=== PATIENT | male | born 1960 | race African-American/Black ===

== ENCOUNTER 2019-04-05 17:26 | Emergency (ER) | payer SELFPAY ==
[~2019-04-05] VITALS: Ht 188 cm; Wt 95.3 kg
--- NOTE | 2019-04-05 17:41 | NUR ---
Dr. Steiner at bedside assessing patient.
--- NOTE | 2019-04-05 18:00 | NUR ---
Patient taken down to xray.
--- NOTE | 2019-04-05 18:10 | NUR ---
Patient returned from Xray.
--- NOTE | 2019-04-05 18:14 | NUR ---
Dr. Steiner at bedside discussing results of xray with patient.
--- NOTE | 2019-04-05 18:34 | NUR ---
PT WAS D/C'd TO HOME. D/C INSTUCTIONS GIVEN TO THE PT.
[2019-04-05 18:35] VITALS: BP 139/84
== END 2019-04-05 18:36 | disposition home or self-care (01) ==
LOC: ER 17:26
DX: S16.1XXA Strain of muscle, fascia and tendon at neck level, initial encounter (principal); V43.52XA Car driver injured in collision with other type car in traffic accident, initial encounter; Y93.89 Activity, other specified; Y92.89 Other specified places as the place of occurrence of the external cause; Y99.8 Other external cause status
CPT/HCPCS: 72072; A4663